=== PATIENT | female | born 1970 | race Caucasian/White ===

== ENCOUNTER 2017-09-07 14:10 | Emergency (ER) | payer BC ==
[~2017-09-07] VITALS: Ht 182.9 cm; Wt 77.3 kg
[~2017-09-07 14:10] MED LIST: ALBUTEROL SULF8.5 GM IH
[2017-09-07 16:50] LABS: APPEARANCE SL.HAZY ((CLEAR)); BILIRUBIN NEGATIVE; BLOOD NEGATIVE; COLOR YELLOW ((YELLOW)); GLUCOSE (STRIP) NEGATIVE; KETONES 80; LEUKOCYTES SMALL; NITRITE NEGATIVE; PROTEIN (STRIP) NEGATIVE; SPECIFIC GRAVITY 1.018 (1.000-1.030); UROBILINOGEN 0.2 MG/DL (0.2-1.0)
[2017-09-07 17:00] LABS: BACTERIA RARE /HPF; EPITHELIAL CELLS 2+ /HPF; MUCUS 2+ /LPF; RED BLOOD CELLS 0-5 /HPF (0-5); WHITE BLOOD CELLS 0-5 /HPF (0-5)
[2017-09-07 17:13] LABS: BASOPHIL (%) 0.3 % (0-1); EOSINOPHIL (%) 0.3 % (0-5); HEMATOCRIT 39.5 % (36.0-46.0); HEMOGLOBIN 13.4 G/DL (11.9-15.5); IMMATURE GRANULOCYTE (%) 0.3 % (0.0-0.7); LYMPHOCYTE (%) 27.8 % (15-42); MCH 28.9 PG (29.0-34.0); MCHC 33.9 G/DL (30.0-36.0); MCV 85.1 FL (83-99); MONOCYTE (%) 12.4 % (3-12); MONOCYTE COUNT 0.4 K/uL (0-0.8); NEUTROPHIL (%) 58.9 % (45-76); NEUTROPHIL COUNT 2.1 K/uL (1.8-6.4); PLATELET COUNT 175 K/uL (156-360); RBC DIS.WIDTH-CV 12.1 % (11.8-14.6); RBC DIS.WIDTH-SD 37.9 % (39-53); RED BLOOD COUNT 4.64 M/uL (3.80-5.20); WHITE BLOOD COUNT 3.6 K/uL (4.1-10.2)
[2017-09-07 17:18] LABS: ALBUMIN 3.8 g/dL (3.2-4.8); CHLORIDE 105 mEq/L (99-109)
[2017-09-07 17:19] LABS: POTASSIUM 3.8 mEq/L (3.7-5.4); SODIUM 136 mEq/L (136-147)
[2017-09-07 17:21] LABS: GLUCOSE 90 mg/dL (70-99); TOTAL PROTEIN 6.2 g/dL (6.4-8.3)
[2017-09-07 17:23] LABS: TOTAL BILIRUBIN 0.5 mg/dL (0.0-1.0)
[2017-09-07 17:24] LABS: ALKALINE PHOSPHATASE 59 IU/L (3-129)
[2017-09-07 17:25] LABS: CREATININE 0.8 mg/dL (0.6-1.3); GFR ESTIMATE (CALCULATED) > 59 mL/min/
[2017-09-07 17:26] LABS: AST (GOT) 23 IU/L (2-34); DIRECT BILIRUBIN 0.2 mg/dL (0.0-0.3); UREA NITROGEN (BUN) 10 mg/dL (9-23)
[2017-09-07 17:27] LABS: ALT (GPT) 37 IU/L (3-49)
[2017-09-07 17:28] LABS: LIPASE 14 U/L (1.0-51.0)
[2017-09-07] MEDS ORDERED: VENTOLIN HFA18 GM IH (19:03)
[2017-09-07] MEDS ORDERED: ZOFRAN ODT8 MG PO (19:03)
[2017-09-07] MEDS ORDERED: PREDNISONE20 MG PO (19:03)
[2017-09-07] MEDS ORDERED: ZITHROMAX250 MG PO (19:03)
[2017-09-07 19:23] VITALS: BP 114/62
== END 2017-09-07 19:24 | disposition home or self-care (01) ==
LOC: EME 14:10
PROVIDERS: Physician Assistant
DX: J11.08 Influenza due to unidentified influenza virus with specified pneumonia (principal); J18.0 Bronchopneumonia, unspecified organism; E86.0 Dehydration; J45.909 Unspecified asthma, uncomplicated
CPT/HCPCS: 71046; 71250; 80048; 80076; 81003; 83605; 83690; 85025; 87040; 93005; 99281; 99285; J1885; J2405; J7030; J7512

== ENCOUNTER 2017-09-20 05:31 | Emergency (ER) | payer BC ==
[~2017-09-20] VITALS: Ht 182.9 cm; Wt 80.7 kg
[~2017-09-20 05:31] MED LIST changes: +PREDNISONE20 MG PO; +VENTOLIN HFA18 GM IH; +ZITHROMAX250 MG PO; +ZOFRAN ODT8 MG PO
[2017-09-20 06:22] LABS: HEMATOCRIT 37.8 % (36.0-46.0); HEMOGLOBIN 12.6 G/DL (11.9-15.5); MCHC 33.3 G/DL (30.0-36.0); MCV 87.1 FL (83-99); PLATELET COUNT 219 K/uL (156-360); RBC DIS.WIDTH-CV 12.4 % (11.8-14.6); RBC DIS.WIDTH-SD 39.5 % (39-53); RED BLOOD COUNT 4.34 M/uL (3.80-5.20)
[2017-09-20 06:33] LABS: ALBUMIN 3.7 g/dL (3.2-4.8); CHLORIDE 111 mEq/L (99-109); SODIUM 138 mEq/L (136-147)
[2017-09-20 06:35] LABS: GLUCOSE 119 mg/dL (70-99)
[2017-09-20 06:36] LABS: TOTAL PROTEIN 5.9 g/dL (6.4-8.3)
[2017-09-20 06:37] LABS: TOTAL BILIRUBIN 0.5 mg/dL (0.0-1.0)
[2017-09-20 06:39] LABS: ALKALINE PHOSPHATASE 64 IU/L (3-129); CREATININE 0.8 mg/dL (0.6-1.3); GFR ESTIMATE (CALCULATED) > 59 mL/min/
[2017-09-20 06:40] LABS: UREA NITROGEN (BUN) 10 mg/dL (9-23)
[2017-09-20 06:41] LABS: AST (GOT) 19 IU/L (2-34)
[2017-09-20 06:54] LABS: D-DIMER ELISA < 150.00 ng/mLDDU (<230)
[2017-09-20 07:54] LABS: ALT (GPT) 18 IU/L (3-49)
[2017-09-20 07:55] LABS: LIPASE 22 U/L (1.0-51.0)
[2017-09-20 09:56] LABS: APPEARANCE CLEAR ((CLEAR)); BILIRUBIN NEGATIVE; BLOOD NEGATIVE; COLOR STRAW ((YELLOW)); GLUCOSE (STRIP) NEGATIVE; KETONES NEGATIVE; LEUKOCYTES TRACE; NITRITE NEGATIVE; PROTEIN (STRIP) NEGATIVE; SPECIFIC GRAVITY 1.006 (1.000-1.030); UROBILINOGEN 0.2 MG/DL (0.2-1.0)
[2017-09-20 09:57] LABS: BACTERIA NONE SEEN /HPF; EPITHELIAL CELLS RARE /HPF; MUCUS TRACE /LPF; RED BLOOD CELLS 0-5 /HPF (0-5); UCUL ADDED? NO; WHITE BLOOD CELLS 0-5 /HPF (0-5)
[2017-09-20] MEDS ORDERED: TYLENOL WITH C1 EACH PO (10:20)
[2017-09-20 10:50] VITALS: BP 10/77
== END 2017-09-20 10:51 | disposition home or self-care (01) ==
LOC: EME 05:31
PROVIDERS: Emergency Medicine
DX: R10.9 Unspecified abdominal pain (principal); M54.9 Dorsalgia, unspecified; J45.909 Unspecified asthma, uncomplicated
CPT/HCPCS: 71046; 74176; 80053; 81003; 83690; 85027; 85379; 93005; 99281; 99284